=== PATIENT | male | born 1985 | race Caucasian/White ===

== ENCOUNTER 2020-03-10 21:43 | Emergency (ER) | payer OTHER, SELFPAY ==
[2020-03-10 21:44] VITALS: BP 134/76; PULSE 80; RESP 16; TEMP 35.8; O2SAT 100; BMI 25.5
[2020-03-10 22:03] VITALS: BP 117/70; PULSE 78; RESP 15; O2SAT 98
--- NOTE | 2020-03-10 22:46 | CT_ITS ---
RUQ PAIN TECHNIQUE: Helically acquired images were obtained of the abdomen and pelvis following IV contrast. A radiation dose optimization technique was used for this scan. IV Contrast dosage and agent: 100mL [id number] Oral contrast: None. COMPARISON: None FINDINGS: # of images incl. paperwork: [id number] LOWER CHEST: Lung bases are clear. No cardiomegaly or pericardial effusion observed. LIVER: Homogeneous. No focal mass. Hepatomegaly and steatosis GALLBLADDER AND BILIARY TREE: Mildly distended without stones or wall thickening No intra- or extrahepatic biliary ductal dilation. KIDNEYS AND URETERS: Normal renal size and position. There is no hydronephrosis. ADRENAL GLANDS: Non-enlarged. SPLEEN: Normal size without focal cystic or solid mass. PANCREAS: No focal cystic or solid mass. BOWEL: The appendix is unremarkable The stomach and small bowel are unremarkable. There is enteric contrast seen within the distal small bowel There is retained fecal material seen throughout the colon. Correlate for constipation No diverticulitis LYMPH NODES: No enlarged mesenteric or retroperitoneal lymph nodes. PERITONEUM: No ascites or free air. No other fluid collection. VESSELS: Aorta is non-dilated. URINARY BLADDER: Poorly distended with questionable wall thickening. Correlate clinically for cystitis REPRODUCTIVE ORGANS: No pelvic masses or pelvic ascites. ABDOMINAL WALL: No discrete abdominal or pelvic wall hernia observed. BONES: No acute osseous abnormality. CT/Abdomen/Pelvis W IV Cont ONLY IMPRESSION: Hepatomegaly and steatosis Gallbladder is mildly distended without evidence of stones or wall thickening Poorly distended bladder with borderline with thickened wall. Correlate for cystitis Retained fecal material throughout the colon Individualized dose optimization techniques were used for this CT. at 0006 Reported and signed by: Suzanna Gates DO Electronically Signed: Suzanna Gates DO at 0:05 EST Tel , Service support ,
--- NOTE | 2020-03-10 22:50 | ED.VIS.GI ---
History of Present Illness Chief Complaint: Abd Pain Informant: Patient - Abdominal Pain/Flank Pain Onset: Today Context: Sudden Onset Timing: Waxes and wanes Quality: Burning Location: RUQ - Nausea/Vomiting/Emesis GI Symptom: Nausea, Vomiting Onset: Today Quality: Nonbilious Narrative: Patient is a 35-year-old male with no significant past medical history presenting with sudden onset of pain in his right upper quadrant. Patient states that he had worked a 12-hour shift today and was eating dinner which was pizza. He had 2 beers. He then suddenly had pain in his right upper quadrant. He states it radiates a little bit to the center of his abdomen. He said associated nausea and vomiting. Patient states when he was vomiting he started to get tingling and numbness of his fingers bilaterally. This is since resolved. The pain waxes and wanes in intensity and he describes it as throbbing and burning. He states his bowel moods been normal. He states he has similar episode about 3 years ago he was on vacation in [place]. At that time he was told it might be his gallbladder and was told he should go to the ER at an urgent care but declined to because he was on vacation. Since then he intermittently has episodes of abdominal pain but never this severe. He feels that Pepto-Bismol sometimes helpful. It seems to be worse with eating. He denies any significant reflux/GERD symptoms. He states his urination has been normal. [place] any fever or chills. No chest pain or difficulty breathing. No other complaints at this time. Past Medical History - Allergies and Home Meds Allergies/Adverse Reactions: Allergies No Known Allergies Allergy (Verified 03/10/20 21:45) Primary Care Physician: NOT,DEFINED [NON-STAFF] - Past Medical History: None Surgical History: noncontributory Lives: Spouse/ Significant Other Smoking Status: Former smoker Alcohol: Occasional Review of Systems General: Denies: Chills, Fever, Sweats Eyes: Denies: Visual changes - bilaterally, Diplopia ENT: Denies: Rhinorrhea, Sore throat Cardiovascular: Denies: Chest pain, Palpitations Respiratory: Denies: Dyspnea, Cough, Dyspnea on exertion Gastrointestinal: Reports: Abdominal pain, Nausea, Vomiting. Denies: Diarrhea, Melena, Hematochezia Genitourinary: Denies: Dysuria, Hematuria, Frequency Musculoskeletal: Denies: Back pain, Extremity Pain Skin: Denies: Rash, Wounds Neurological: Denies: Headache, Weakness, Numbness Physical Exam Vital Signs/Narrative: Vital Signs Temp Pulse Resp BP Pulse Ox 03/10/20 22:03 78 15 117/70 98 03/10/20 21:44 96.5 F L 80 16 134/76 H 100 Inital Vital Signs reviewed: Yes General: Well nourished, Well developed, No Acute Distress Head: Normocephalic, Atraumatic Eyes: Perrl, EOMI ENT: Moist mucous membranes, No rhinorrhea Neck: Supple, Nontender Cardiovascular: Regular rate, Regular rhythm, No murmurs Respiratory: No distress, CTA bilaterally, Chest nontender Abdomen: Soft, Nondistended, Normal bowel sounds, Tender - Right upper quadrant, Falk's sign. Negative for: Rebound tenderness Back: Nontender, Normal Inspection. Negative for: CVA tenderness Extremities: Nontender, No edema Skin: Normal color, No rash Neurological: Alert, Oriented x3, Cranial nerves II-XII grossly intact, Normal Strength, Normal Sensation Psychological: Normal affect, Normal Mood Diagnostic/Tx/Re-eval Clinical Impression(s) from Imaging Studies Abdomen/Pelvis CT 03/10/20 22:46 IMPRESSION: Hepatomegaly and steatosis Gallbladder is mildly distended without evidence of stones or wall thickening Poorly distended bladder with borderline with thickened wall. Correlate for cystitis Retained fecal material throughout the colon Individualized dose optimization techniques were used for this CT. at 0006 Reported and signed by: Suzanna Gates DO Electronically Signed: Suzanna Gates DO at 0:05 EST Tel , Service support , Laboratory Data 03/10/20 03/10/20 23:10 23:10 WBC 9.9 RBC 4.30 L Hgb 13.6 Hct 40.0 MCV 93.0 MCH 31.6 MCHC 34.0 RDW Std Deviation 44.2 H RDW Coeff of Brown 12.9 Plt Count 226 MPV 10.2 Immature Gran % (Auto) 1.300 H Neut % (Auto) 82.1 H Lymph % (Auto) 12.2 L Stanly % (Auto) 4.1 Eos % (Auto) 0.0 Baso % (Auto) 0.3 Absolute Neuts (auto) 8.1 H Absolute Lymphs (auto) 1.20 Nucleated RBC % 0 Sodium 138 Potassium 3.1 L Chloride 106 Carbon Dioxide 24.0 Anion Gap 8 BUN 17 Creatinine 0.83 Estim Creat Clear Calc 117.25 Est GFR (MDRD) Af Amer 136 Est GFR (MDRD) Non-Af 113 BUN/Creatinine Ratio 20.5 H Glucose 104 Calcium 8.7 Total Bilirubin 0.80 Direct Bilirubin 0.20 AST 25 ALT 31 Alkaline Phosphatase 56 Total Protein 7.3 Albumin 4.3 Globulin 3.0 Lipase 57 L - Medical Decision Making Evaluated for sudden onset of pain in his right upper quadrant. Occurred after eating pizza dinner and drinking 2 beers. He appears nontoxic in no acute distress. He did have some episodes of vomiting prior to arrival. When I evaluated him his symptoms started to improve and he is feeling better. Patient does have pain in his right upper quadrant a positive Falk sign so we will obtain CT as we do not have ultrasound right now and check labs. As he is not currently having any significant symptoms he is not given any nausea/pain medication at this time. He is given IV fluids. Lab work is largely unremarkable. Lipase, CMP and CBC are within normal limits. CT of the abdomen and pelvis does not show any acute process. There is no pericholecystic few fluid or other findings consistent with acute cholecystitis. Patient is counseled is differential likely includes biliary colic versus peptic ulcer disease/gastritis. He is counseled on low acid diet and to avoid fatty and fried foods. He will be started on Pepcid and given Zofran as well prescriptions. Patient is counseled on signs and symptoms requiring return to the emergency room. Patient verbalizes agreement and understand this plan. Patient discharged home in stable and improved condition. ED Disposition - Plan for ED Patient: Disposition: Home or Assisted Living Diagnosis: Abdominal pain of unknown cause Instructions: ED Unknown Causes of Abdominal ... Prescriptions: Famotidine [Pepcid] 20 mg PO BID #28 tab Transmission Status: Pending to [facility] Ondansetron [Zofran Odt] 4 mg PO Q8H PRN PRN #10 tab PRN Reason: Nausea Transmission Status: Pending to [facility] Referrals: Amish Stauffer MD [STAFF PHYSICIAN] - Additional Instructions: The exact cause of your pain is not clear however I do not think you have an acute infection in your abdomen or an acute gallbladder attack. Please adhere to a low acid diet as you could have inflammation of your stomach or part of your intestine that is causing your pain. He will be started on an antacid as well for this. Return the emergency room with any worsening symptoms. Please follow-up with surgery for further evaluation of this abdominal pain.
[2020-03-10] MEDS: 0.9% Normal Saline 1,000 ML 1000 ML IV (23:15)
[2020-03-10 23:36] LABS: AST(SGOT) 25 U/L (15-37); Alanine Aminotransfer ALT/SGPT 31 U/L (16-61); Albumin, Serum 4.3 g/dL (3.2-5.0); Alkaline Phosphatase 56 U/L (45-117); Anion Gap 8 (5-15); BUN 17 mg/dL (7-18); BUN/Creat Ratio 20.5 RATIO (10-20); Calcium,Total 8.7 mg/dL (8.5-10.1); Chloride 106 mmol/L (98-107); Creatinine, Serum 0.83 mg/dL (0.70-1.30); EST Glomerular Filtration Rate 113 mL/min (>60); Est Glom Filt Rate - Afr Amer 136 mL/min (>60); Estimated Creatinine Clearance 117.25 ml/min; Glucose 104 mg/dL (74-106); Lipase 57 U/L (73-393); Potassium 3.1 mmol/L (3.5-5.1); Protein, Total 7.3 g/dL (6.4-8.2); Sodium Level 138 mmol/L (136-145)
[2020-03-10 23:38] LABS: Absolute Neutrophil Count 8.1 X10^3/uL (2.0-7.7); Basophil# 0.03 X10^3/uL; Basophil% 0.3 % (0-1); Hemoglobin 13.6 g/dL (13.0-16.5); Lymphocyte % 12.2 % (19-41); Mean Corpuscular Hgb 31.6 pg (27.0-32.0); Mean Platelet Vol. 10.2 fl (6.2-12.0); Monocyte% 4.1 % (0-10); NRBC Flagged by Analyzer 0 % (0-5); Neutrophil # 8.11 X10^3/uL (2.7-7.7); Neutrophil % 82.1 % (47-70); Platelet Count 226 K/mm3 (150-450); RBC Distribution Width CV 12.9 % (11.6-14.6); RBC Distribution Width SD 44.2 fl (35.1-43.9); White Blood Count 9.9 K/mm3 (4.4-11.0)
[2020-03-11 01:18] VITALS: BP 110/70; PULSE 68; RESP 16; O2SAT 98
== END 2020-03-11 01:19 | disposition home or self-care (01) ==
PROVIDERS: Emergency Provider Emergency Medicine
DX: R10.11 Right upper quadrant pain (principal); R11.2 Nausea with vomiting, unspecified; Z87.891 Personal history of nicotine dependence
CPT/HCPCS: 74177; 80048; 80076; 83690; 85025; 96360; 96361; 99283; J7030; Q9967; A4216